=== PATIENT | female | born 1980 | race Two or more races ===

== ENCOUNTER 2016-09-02 03:08 | Emergency (ER) | payer OTHER ==
[~2016-09-02] VITALS: Ht 167.6 cm; Wt 72.3 kg
[2016-09-02] MEDS ORDERED: SODIUM CHLORIDE 0.9% 1,000 ML IV ONE (04:11)
[2016-09-02] MEDS ORDERED: KETOROLAC 30MG/ML VIAL IV ONE (04:15)
[2016-09-02 04:46] LABS: BASOPHILS % 0.5 % (0.0-2.0); EOSINOPHILS % 1.4 % (0.0-5.0); HEMATOCRIT. 30.9 % (36.0-48.0); HEMOGLOBIN. 10.2 g/dL (12.0-16.0); MEAN CORPUSCULAR HEMOGLOBIN 29.5 pg (28.0-32.0); MEAN CORPUSCULAR VOLUME 89.4 fL (81.0-99.0); MEAN PLATELET VOLUME 9.3 fl (7.4-10.4); MONOCYTES % 11.5 % (2.0-8.0); NEUTROPHILS % 59.6 % (40.0-76.0); PLATELET 203 x1000/uL (130-400); RED BLOOD CELL COUNT 3.46 mill/uL (4.2-5.4)
[2016-09-02 04:54] LABS: HCG SCREEN NEGATIVE
[2016-09-02 04:56] LABS: CARBON DIOXIDE 24 mEq/L (21-32); CHLORIDE 109 mEq/L (98-107)
[2016-09-02 05:47] VITALS: BP 122/78
== END 2016-09-02 05:47 | disposition home or self-care (01) ==
LOC: ER 03:08
DX: G43.909 Migraine, unspecified, not intractable, without status migrainosus (principal); R00.2 Palpitations
CPT/HCPCS: 36415; 80048; 84703; 85025; 93005; 96360; 99285; J7030; Z7610